=== PATIENT | female | born 1965 | race Caucasian/White ===

== ENCOUNTER 2021-09-24 08:18 | Emergency (ER) | payer MEDICAID ==
[~2021-09-24] VITALS: Ht 170.2 cm; Wt 64.0 kg
[2021-09-24 08:21] VITALS: BP_SYST 110
--- NOTE | 2021-09-24 08:35 | NUR ---
Pt present to ED with complaint of RUQ abd pain radiaitng to her sides rated 9/10. Pt AOX4 GCS 15. hx of recent bladder infection currently taking abx for. Pt placed in room 6 and currently being seen by attending ED physician.
[2021-09-24] MEDS ORDERED: NACL 0.9% 1,000 ML IV ONE (08:45)
[2021-09-24] MEDS ORDERED: ONDANSETRON HCL 4 MG/2 ML VIAL IVP ONE (08:45)
[2021-09-24] MEDS ORDERED: MORPHINE 4 MG INJ. 4 MG/ML VIAL IVP ONE (08:45)
--- NOTE | 2021-09-24 09:26 | NUR ---
Patient aware of plan of care, awaiting U/S.
[2021-09-24 09:40] LABS: BILIRUBIN,URINE NEGATIVE (NEGATIVE); BLOOD, URINE NEGATIVE (NEGATIVE); COLOR,URINE YELLOW (YELLOW); GLUCOSE,URINE NEGATIVE (NEGATIVE); KETONES,URINE NEGATIVE (NEGATIVE); LEUKOCYTE ESTERASE ,URINE TRACE (NEGATIVE); NITRITE, URINE NEGATIVE (NEGATIVE); PROTEIN URINE NEGATIVE (NEGATIVE); UROBILINOGEN,URINE 0.2 (0.2-1.0)
[2021-09-24 09:42] LABS: BASOPHILS % (AUTO) 0.5 % (0.0-2.0); EOSINOPHILS # (AUTO) 0.1 K/uL (0.0-0.4); EOSINOPHILS % (AUTO) 1.3 % (0.0-4.0); HEMATOCRIT 42.3 % (36-48); HEMOGLOBIN 14.9 g/dL (12.0-16.0); LYMPHOCYTES # (AUTO) 1.6 K/uL (1.0-5.5); LYMPHOCYTES % (AUTO) 25.3 % (20.5-51.5); MEAN CORPUSCULAR HEMOGLOBIN 32 pg (27-31); MEAN CORPUSCULAR HGB CONC 35 % (32-36); MEAN CORPUSCULAR VOLUME 92 fL (79.0-98.0); MONOCYTES # (AUTO) 0.6 K/uL (0.0-1.0); MONOCYTES % (AUTO) 9.5 % (1.7-9.3); NEUTROPHILS % (AUTO) 63.4 % (40.0-70.0); PLATELET COUNT (AUTO) 257 K/uL (130-430); RED BLOOD CELL COUNT(AUTO) 4.58 MIL/uL (4.2-6.2); RED CELL DISTRIBUTION WIDTH 13.3 % (9.0-15.0); WHITE BLOOD COUNT (AUTO) 6.3 K/uL (4.8-10.8)
[2021-09-24 09:45] LABS: CREATININE 0.68 mg/dL (0.55-1.30); POTASSIUM 3.6 mmol/L (3.5-5.1)
[2021-09-24 09:48] LABS: CLARITY/URINE SLIGHTLY HAZY (CLEAR)
[2021-09-24 09:50] LABS: TOTAL BILIRUBIN 0.8 mg/dL (0.0-1.0)
--- NOTE | 2021-09-24 09:53 | NUR ---
US at bedside. Pain improved p morphine- pt stated "I'm able to take a deep breath without it hurting".
[2021-09-24 10:03] LABS: BACTERIA,URINE FEW /HPF (None Seen); RBC,URINE NONE SEEN /HPF (0-3)
[2021-09-24 11:06] VITALS: BP_SYST 136
[2021-09-24] MEDS ORDERED: TRAM50TA PO (11:06)
--- NOTE | 2021-09-24 11:08 | NUR ---
IV catheter dc'd- intact. Will discharge.
== END 2021-09-24 12:01 | disposition home or self-care (01) ==
LOC: SED 08:18
DX: R10.11 Right upper quadrant pain (principal); N39.0 Urinary tract infection, site not specified; R11.0 Nausea; R30.0 Dysuria; Z79.899 Other long term (current) drug therapy
CPT/HCPCS: 99284; 96374; 76700; 96361; 96375; 80053; 81000; 83690; 85025; 87086; 36415; J2405; J2270; J7030